=== PATIENT | female | born 1975 | race Caucasian/White ===

== ENCOUNTER 2018-03-12 13:23 | Emergency (ER) | payer OTHER ==
[2018-03-12 13:37] VITALS: BP 118/70
--- NOTE | 2018-03-12 13:50 | UC ---
Lower Extremity/Ankle HPI - HPI Summary HPI Summary: DROPPED HER VACUUM ON HER LEFT GREAT TOE 2 DAYS AGO. HAS HAD PROGRESSIVE PAIN AND SWELLING SINCE THEN. - History of Current Complaint Chief Complaint: UCLowerExtremity Stated Complaint: FOOT INJURY Time Seen by Provider: 03/12/18 13:38 Hx Obtained From: Patient Hx Last Menstrual Period: 03/02/18 Onset/Duration: Sudden Onset, Lasting Days, Still Present Severity Initially: Moderate Severity Currently: Moderate Pain Intensity: 7 Pain Scale Used: 0-10 Numeric Aggravating Factor(s): Standing, Ambulation Alleviating Factor(s): Rest Able to Bear Weight: Yes - Allergies/Home Medications Allergies/Adverse Reactions: Allergies Allergy/AdvReac Type Severity Reaction Status Date / Time No Known Allergies Allergy Verified 03/12/18 13:30 PMH/Surg Hx/FS Hx/Imm Hx Previously Healthy: Yes - Surgical History Surgical History: Yes Surgery Procedure, Year, and Place: C-SECTIONs x 3, gallbladder removal - Family History Known Family History: Negative: Hypertension, Diabetes - Social History Alcohol Use: Occasionally Substance Use Type: None Smoking Status (MU): Never Smoked Tobacco Review of Systems Constitutional: Negative Skin: Bruising Respiratory: Negative Cardiovascular: Negative Gastrointestinal: Negative Musculoskeletal: Arthralgia, Decreased ROM, Edema All Other Systems Reviewed And Are Negative: Yes Physical Exam Triage Information Reviewed: Yes Appearance: Well-Appearing, No Pain Distress, Well-Nourished Vital Signs: Initial Vital Signs Temp 98.9 F 03/12/18 13:31 Pulse 95 03/12/18 13:31 Resp 16 03/12/18 13:31 BP 118/70 03/12/18 13:31 Pulse Ox 97 03/12/18 13:31 Vital Signs Reviewed: Yes Eyes: Positive: Conjunctiva Clear ENT: Positive: Hearing grossly normal Neck: Positive: Supple Respiratory: Positive: No respiratory distress, No accessory muscle use Cardiovascular: Positive: Pulses Normal Abdomen Description: Positive: Soft Musculoskeletal: Positive: ROM Limited @ - LEFT GREAT TOE, Edema @ - LEFT GREAT TOE, Other: - TTP LEFT GREAT TOE Neurological: Positive: Alert Psychological: Positive: Age Appropriate Behavior Skin: Positive: Other - BRUISING LEFT GREAT TOE Diagnostics - Radiology LEFT GREAT TOE XRAY Xray Interpretation: No Acute Changes Radiology Interpretation Completed By: Radiologist Lower Extremity Course/Dx - Differential Dx/Diagnosis Provider Diagnoses: LEFT GREAT TOE CONTUSION Discharge - Sign-Out/Discharge Documenting (check all that apply): Discharge/Admit/Transfer - Discharge Plan Condition: Stable Disposition: HOME Patient Education Materials: Foot Contusion (ED) Referrals: Luciana Woodruff MD [Primary Care Provider] - If Needed Additional Instructions: XRAY TODAY NEGATIVE FOR FRACTURE OR DISLOCATION. POST-OP SHOE FOR COMFORT. OTC IBUPROFEN NEEDED. REST, ICE, ELEVATE. FOLLOW-UP WITH YOUR PCP IF NOT IMPROVING EXPECTED. CONTUSION: Your injury has resulted in a contusion -- a crushing of the deep tissues. No injury to important structures was detected during the physician's exam. Contusions vary in the amount of pain they cause, and in the length of time required for healing. Typically, the area will become bruised, and will remain painful to touch for two or three weeks. However, most patients are back to working and playing within a few days. After the initial period of rest and cold-packs, your symptoms (together with the doctor's recommendations) will determine how rapidly you can get back to full activity. Usually this means "do what feels okay, but don't do things that hurt." If re-examination was recommended, it's important to follow up as instructed. Call the doctor or return any time if pain increases, if swelling becomes severe, if you develop numbness or weakness in an injured extremity, or if any other alarming symptoms occur. - Billing Disposition and Condition Condition: STABLE Disposition: Home
--- NOTE | 2018-03-12 14:02 | RAD ---
HISTORY: TRAUMA, SWELLING, trauma to left great toe COMPARISONS: None VIEWS: 3, Frontal, lateral, and oblique views of the first digit of the left foot FINDINGS: BONE DENSITY: Normal. BONES: There is no displaced fracture. JOINTS: There is no arthropathy. ALIGNMENT: There is no dislocation. SOFT TISSUES: Unremarkable. OTHER FINDINGS: None. IMPRESSION: NO ACUTE OSSEOUS INJURY. IF SYMPTOMS PERSIST, RECOMMEND REPEAT IMAGING.
== END 2018-03-12 14:34 | disposition home or self-care (01) ==
LOC: UCEAST 13:23
DX: S90.112A Contusion of left great toe without damage to nail, initial encounter (principal); W22.8XXA Striking against or struck by other objects, initial encounter; Y93.9 Activity, unspecified; Y92.9 Unspecified place or not applicable
CPT/HCPCS: 99212; G0463

== ENCOUNTER 2019-11-10 13:13 | Emergency (ER) | payer OTHER ==
[2019-11-10 14:02] VITALS: BP 126/94
--- NOTE | 2019-11-10 14:11 | UC ---
Ear Complaint HPI - HPI Summary HPI Summary: 44-year-old female whose has had cold symptoms for the last 10 days and today she has a left earache with some left maxillary sinus pressure. She has purulent yellowish nasal coryza. No difficulty breathing. - History of Current Complaint Chief Complaint: UCEar Stated Complaint: LEFT EAR PAIN Time Seen by Provider: 11/10/19 14:07 Hx Obtained From: Patient Hx Last Menstrual Period: 10/27/2019 ?: No Onset/Duration: Gradual Onset, Lasting Days, Still Present Severity Initially: Mild Severity Currently: Moderate Pain Intensity: 4 Aggravating Factors: Nothing Alleviating Factors: Nothing Associated Signs/Symptoms: Positive: URI Symptoms - Allergies/Home Medications Allergies/Adverse Reactions: Allergies Allergy/AdvReac Type Severity Reaction Status Date / Time No Known Allergies Allergy Verified 11/10/19 13:56 Home Medications: Home Medications Acetaminophen [Acetaminophen Extra Strength] 1,000 mg PO Q6H PRN 11/10/19 [ History Confirmed 11/10/19] PMH/Surg Hx/FS Hx/Imm Hx Previously Healthy: Yes - Surgical History Surgical History: Yes Surgery Procedure, Year, and Place: C-SECTIONs x 3, gallbladder removal - Family History Known Family History: Negative: Hypertension, Diabetes - Social History Alcohol Use: Occasionally Substance Use Type: None Smoking Status (MU): Never Smoked Tobacco Review of Systems All Other Systems Reviewed And Are Negative: Yes ENT: Positive: Ear Ache - Left earache, Nasal Discharge, Sinus Congestion, Sinus Pain/Tenderness - Left-sided sinus pressure. Is Patient Immunocompromised?: No Physical Exam Triage Information Reviewed: Yes Appearance: Well-Appearing, No Pain Distress, Well-Nourished Vital Signs: Initial Vital Signs Temp 98.5 F 11/10/19 13:57 Pulse 89 11/10/19 13:57 Resp 14 11/10/19 13:57 BP 126/94 11/10/19 13:57 Pulse Ox 100 11/10/19 13:57 Vital Signs Reviewed: Yes Eyes: Positive: Conjunctiva Clear ENT: Positive: Pharynx normal - Yellow purulent post-nasal drainage, Nasal congestion, Nasal drainage - Yellow purulent nasal coryza, TMs normal, Sinus tenderness - Tender over the left maxillary sinus., Uvula midline Dental: Positive: Other: - No evidence of abscess formation and no tooth or gum abnormality. Neck: Positive: Supple, Nontender, No Lymphadenopathy Respiratory: Positive: Lungs clear, Normal breath sounds, No respiratory distress, No accessory muscle use Cardiovascular: Positive: RRR, No Murmur, Pulses Normal, Brisk Capillary Refill Musculoskeletal Exam: Normal Neurological Exam: Normal Psychological Exam: Normal Skin Exam: Normal Ear Complaint Course/Dx - Course Course Of Treatment: Patient is comfortable here. She was concerned she might have TMJ however I believe this is more a sinus infection on the left side. She is to follow-up with her primary care provider if no improvement in 5-7 days. - Differential Dx/Diagnosis Provider Diagnosis: Sinusitis Discharge ED - Sign-Out/Discharge Documenting (check all that apply): Patient Departure All imaging exams completed and their final reports reviewed: No Studies - Discharge Plan Condition: Good Disposition: HOME Prescriptions: Amoxicillin PO (*) [Amoxicillin 875 MG (*)] 875 mg PO BID 10 Days #20 tab Fluconazole 150 MG TAB* [Diflucan 150 MG TAB*] 150 mg PO UC ONCE #1 tablet Patient Education Materials: Sinusitis (ED) Referrals: Luciana Woodruff MD [Primary Care Provider] - Additional Instructions: Increase fluids, [id number] cold medicine as directed, follow-up with your primary care provider if no improvement in 5-7 days. - Billing Disposition and Condition Condition: GOOD Disposition: Home
== END 2019-11-10 14:33 | disposition home or self-care (01) ==
LOC: UCCORT 13:13
DX: J32.9 Chronic sinusitis, unspecified (principal); H92.02 Otalgia, left ear
CPT/HCPCS: 99212; G0463